=== PATIENT | female | born 1990 | race African-American/Black ===

== ENCOUNTER 2024-05-08 17:51 | Emergency (ER) | payer OTHER ==
[2024-05-08 18:05] VITALS: BP 135/95; PULSE 75; RESP 18; TEMP 98.5; BMI 31.6
[2024-05-08] MEDS ORDERED: KETOROLAC TROMETHAMINE 15 MG/ML VIAL ONE (19:20)
[2024-05-08] MEDS: KETOROLAC TROMETHAMINE 15 MG/ML VIAL IM ONE (19:47)
== END 2024-05-08 19:48 | disposition home or self-care (01) ==
LOC: JER 17:51
PROC: 3E0133Z Introduction of Anti-inflammatory into Subcutaneous Tissue, Percutaneous Approach (ICD-10-PCS; principal; 2024-05-08)
DX: M94.0 Chondrocostal junction syndrome [Tietze] (principal)
CPT/HCPCS: 93005; 93010; 93308; 99284-25